=== PATIENT | male | born 1945 | race Caucasian/White ===

== ENCOUNTER 2016-11-17 18:39 | Emergency (ER) | payer OTHER ==
[2016-11-17] MEDS ORDERED: APAP/HYDROCODONE 325/5 TAB PO ONE (18:43)
[2016-11-17] MEDS ORDERED: KETOROLAC TROMETHAMINE 30 MG/ML SOL IM ONE (18:43)
[2016-11-17 18:46] VITALS: PULSE 76; RESP 20; TEMP 97.5
[2016-11-17] MEDS ORDERED: KETOROLAC TROMETHAMINE 30 MG/ML SOL ONE (18:47)
[2016-11-17] MEDS ORDERED: APAP/HYDROCODONE 325/5 TAB ONE (18:47)
[2016-11-17 19:23] VITALS: BP 142/92; O2SAT 97
[2016-11-17] MEDS ORDERED: CYCLOBENZAPRINE 10 MG TAB PO ONE (19:39)
[2016-11-17] MEDS ORDERED: CYCLOBENZAPRINE 10 MG TAB ONE (19:43)
== END 2016-11-17 20:13 | disposition home or self-care (01) | DRG 563 ==
LOC: ED 18:39
DX: S39.012A Strain of muscle, fascia and tendon of lower back, initial encounter (principal); W19.XXXA Unspecified fall, initial encounter
CPT/HCPCS: 72120; 72170; 96372; 99283; J1885

== ENCOUNTER 2017-02-11 20:59 | Emergency (ER) | payer OTHER ==
[2017-02-11 21:03] VITALS: PULSE 90; RESP 20; TEMP 98; O2SAT 96
[2017-02-11] MEDS ORDERED: KETOROLAC TROMETHAMINE 30 MG/ML SOL IM ONE (22:17)
[2017-02-11] MEDS ORDERED: KETOROLAC TROMETHAMINE 30 MG/ML SOL ONE (22:20)
[2017-02-11 23:03] VITALS: BP 178/78
== END 2017-02-11 23:22 | disposition home or self-care (01) | DRG 552 ==
LOC: ED 20:59
DX: M54.5 Low back pain (principal); K59.00 Constipation, unspecified; S30.0XXA Contusion of lower back and pelvis, initial encounter; W07.XXXA Fall from chair, initial encounter
CPT/HCPCS: 72120; 96372; 99283; J1885

== ENCOUNTER 2017-04-06 00:48 | Emergency (ER) | payer OTHER ==
[2017-04-06 01:03] VITALS: TEMP 99
[2017-04-06 01:43] LABS: BASOPHILS % (AUTO) 0 % (0-3); EOSINOPHILS % (AUTO) 2 % (0-9); HEMATOCRIT 41 % (39-53); MEAN CORPUSCULAR VOLUME 86 fL (80-100); MONOCYTES % (AUTO) 8.5 % (0-12); NEUTROPHILS % (AUTO) 67.7 % (37-80)
[2017-04-06 02:08] LABS: CALCIUM 7.7 mg/dl (8.5-10.1); GLOM FILT RATE 98 mL/min (>60); SODIUM 138 mMol/L (136-145)
[2017-04-06 02:46] VITALS: BP 147/74; PULSE 64; RESP 18; O2SAT 98
[2017-04-06 11:31] LABS: BASOPHILS % (AUTO) 1 % (0-3); EOSINOPHILS % (AUTO) 0 % (0-9); HEMATOCRIT 44 % (39-53); MEAN CORPUSCULAR HGB CONC 33.2 gm/dl (32.0-36.0); MEAN CORPUSCULAR VOLUME 87 fL (80-100); MONOCYTES % (AUTO) 5.7 % (0-12); NEUTROPHILS % (AUTO) 82.9 % (37-80)
[2017-04-06 11:44] LABS: CALCIUM 8.1 mg/dl (8.5-10.1); POTASSIUM 3.8 mMol/L (3.5-5.1)
== END 2017-04-06 02:40 | disposition home or self-care (01) | DRG 192 ==
LOC: ED 00:48
DX: J44.9 Chronic obstructive pulmonary disease, unspecified (principal); E10.649 Type 1 diabetes mellitus with hypoglycemia without coma; Z79.84 Long term (current) use of oral hypoglycemic drugs; V49.9XXA Car occupant (driver) (passenger) injured in unspecified traffic accident, initial encounter
CPT/HCPCS: 36415; 80048; 82962; 84484; 85025; 93005; 99283; 99284

== ENCOUNTER 2017-04-07 10:58 | Emergency (ER) | payer OTHER ==
[2017-04-07] MEDS ORDERED: HALOPERIDOL LACTATE 5 MG/ML SOL IV ONE (11:05)
[2017-04-07] MEDS ORDERED: DEXTROSE 50% 1 VIAL SOL IV ONE ×4 (11:12→17:23)
[2017-04-07 11:18] LABS: APPEARANCE,URINE Clear; BILIRUBIN,URINE NEGATIVE (NEGATIVE); COLOR,URINE Yellow; GLUCOSE, URINE (UA) NEGATIVE (NEGATIVE); KETONES,URINE 1+ (NEGATIVE); LEUKOCYTE ESTERASE ,URINE NEGATIVE (NEGATIVE); NITRATE,URINE NEGATIVE (NEGATIVE); OCCULT BLOOD,URINE 1+ (NEG-TRACE)
[2017-04-07 11:21] LABS: AMPHETAMINES NEGATIVE (NEGATIVE); METHADONE NEGATIVE (NEGATIVE); OPIATES(OP13) NEGATIVE (NEGATIVE); OXYCODONE(OXY) NEGATIVE (NEGATIVE); PROPOXYPHENE(PPX) NEGATIVE (NEGATIVE); TRICYCLIC ANTIDEPRESSANTS NEGATIVE (NEGATIVE)
[2017-04-07] MEDS ORDERED: LORAZEPAM 2 MG/ML SOL IV ONE ×2 (11:30→11:47)
[2017-04-07] MEDS ORDERED: SODIUM CHLORIDE 0.9% 1000ML 1,000 ML IV SCH (11:30)
[2017-04-07] MEDS ORDERED: LORAZEPAM 2 MG/ML SOL ONE ×2 (11:32→11:42)
[2017-04-07 11:35] LABS: BASOPHILS % (AUTO) 0 % (0-3); EOSINOPHILS % (AUTO) 0 % (0-9); HEMATOCRIT 46 % (39-53); MEAN CORPUSCULAR HGB CONC 34.3 gm/dl (32.0-36.0); MEAN CORPUSCULAR VOLUME 87 fL (80-100); MONOCYTES % (AUTO) 5.2 % (0-12); NEUTROPHILS % (AUTO) 90.5 % (37-80)
[2017-04-07 11:48] LABS: RBC,URINE 0-3 (0-3AV/HPF); WBC,URINE 0-3 (0-5AV/HPF)
[2017-04-07 12:02] LABS: ALBUMIN 3.6 gm/dl (3.4-5.0); ALT 22 IU/L (14-63); CALCIUM 8.1 mg/dl (8.5-10.1); GLOM FILT RATE 89 mL/min (>60); POTASSIUM 3.3 mMol/L (3.5-5.1)
[2017-04-07 12:04] LABS: SODIUM 136 mMol/L (136-145)
[2017-04-07] MEDS ORDERED: SODIUM CHLORIDE 0.9% FLUSH 10 ML SOL IV PRN (12:48)
[2017-04-07 15:04] VITALS: RESP 20
[2017-04-07 15:54] VITALS: TEMP 99.5
[2017-04-07] MEDS ORDERED: SODIUM CHLORIDE 0.9% 1000ML 1,000 ML IV ONE (17:24)
[2017-04-07 19:35] VITALS: BP 116/56; PULSE 81; O2SAT 94
[2017-04-07] MEDS ORDERED: HALOPERIDOL LACTATE 5 MG/ML SOL ONE (20:32)
== END 2017-04-07 18:18 | disposition short-term general hospital (02) | DRG 948 ==
LOC: ED 10:58
DX: R41.82 Altered mental status, unspecified (principal); E11.9 Type 2 diabetes mellitus without complications; R45.1 Restlessness and agitation; Z79.84 Long term (current) use of oral hypoglycemic drugs
CPT/HCPCS: 36415; 70450; 71010; 80053; 80305; 80307; 81001; 82962; 84484; 85025; 93005; 99285; J1630; J2060

== ENCOUNTER 2018-01-24 18:30 | Emergency (ER) | payer OTHER ==
[2018-01-24 18:31] VITALS: O2SAT 94
[2018-01-24] MEDS ORDERED: TDAP VACCINE 0.5 ML SUS IM ONE ×2 (18:36→18:46)
[2018-01-24 18:42] VITALS: BP 150/92; PULSE 74; RESP 18; TEMP 97.6
[2018-01-24] MEDS ORDERED: CEFTRIAXONE 1 GM PDS IM ONE (18:49)
[2018-01-24] MEDS ORDERED: LIDOCAINE HCL 1% MPF 30 SOL ONE (18:50)
[2018-01-24] MEDS ORDERED: CEFTRIAXONE 1 GM PDS ONE (19:22)
== END 2018-01-24 19:35 | disposition home or self-care (01) | DRG 605 ==
LOC: ED 18:30
DX: S81.812A Laceration without foreign body, left lower leg, initial encounter (principal)
CPT/HCPCS: 12002; 90471; 90715; 96372; 99284; J0696; J2001

== ENCOUNTER 2018-02-13 18:05 | Emergency (ER) | payer OTHER ==
[2018-02-13 18:21] VITALS: BP 155/78; PULSE 82; RESP 16; TEMP 97.1; O2SAT 95
== END 2018-02-13 18:45 | disposition home or self-care (01) | DRG 153 ==
LOC: ED 18:05
DX: H66.91 Otitis media, unspecified, right ear (principal)
CPT/HCPCS: 99282; 99283

== ENCOUNTER 2018-04-25 20:56 | Emergency (ER) | payer OTHER ==
[2018-04-25] MEDS ORDERED: SOLUMEDROL 125 MG/2 ML 125 MG/2 ML PDS IV ONE (22:18)
[2018-04-25] MEDS ORDERED: ALBUTEROL/IPRATROPIUM 1 VIAL SOL INH ONE (22:18)
[2018-04-25] MEDS ORDERED: ALBUTEROL/IPRATROPIUM 1 VIAL SOL ONE (22:23)
[2018-04-25 22:27] LABS: BASOPHILS % (AUTO) 1 % (0-3); EOSINOPHILS % (AUTO) 2 % (0-9); HEMATOCRIT 53 % (39-53); HEMOGLOBIN 16.9 gm/dl (13.5-17.7); LYMPHOCYTES % (AUTO) 20.8 % (10-50); MEAN CORPUSCULAR HEMOGLOBIN 28.2 pg (27.0-32.0); MEAN CORPUSCULAR HGB CONC 32.2 gm/dl (32.0-36.0); MEAN CORPUSCULAR VOLUME 88 fL (80-100); MONOCYTES % (AUTO) 8.9 % (0-12); NEUTROPHILS % (AUTO) 67.6 % (37-80)
[2018-04-25 22:29] VITALS: O2SAT 98
[2018-04-25 22:31] VITALS: BP 198/94; TEMP 97.7
[2018-04-25 22:33] VITALS: PULSE 70; RESP 18
[2018-04-25 22:43] LABS: ALBUMIN 3.1 gm/dl (3.4-5.0); BILIRUBIN,TOTAL 0.5 mg/dl (0.2-1.0); CALCIUM 8.3 mg/dl (8.5-10.1); CARBON DIOXIDE 30.8 mEq/L (21-32); CREATININE 1.03 mg/dl (0.80-1.30); TOTAL PROTEIN 6.9 gm/dl (6.4-8.2)
[2018-04-25] MEDS ORDERED: INSULIN HUMAN REGULAR 100 U/ML SOL SC ONE (23:09)
[2018-04-25] MEDS ORDERED: INSULIN GLARGINE, RECOMBINAN 100 U/ML SOL SC ONE ×2 (23:09→23:13)
[2018-04-25] MEDS ORDERED: INSULIN HUMAN REGULAR 100 U/ML SOL ONE ×2 (23:11→23:12)
[2018-04-25 23:16] LABS: HEMOGLOBIN A1C 13.6 % (4.8-6.0)
== END 2018-04-25 23:39 | disposition home or self-care (01) | DRG 204 ==
LOC: ED 20:56
DX: R06.02 Shortness of breath (principal); E11.65 Type 2 diabetes mellitus with hyperglycemia; Z79.4 Long term (current) use of insulin
CPT/HCPCS: 71046; 80053; 83036; 83880; 85025; 96372; 99284; J1815; J1817

== ENCOUNTER 2018-11-27 17:39 | Emergency (ER) | payer OTHER ==
[2018-11-27 19:52] VITALS: RESP 20; TEMP 97.2
[2018-11-27 19:54] VITALS: BP 170/107; PULSE 78; O2SAT 95
== END 2018-11-27 18:32 | disposition home or self-care (01) | DRG 159 ==
LOC: SUPCPDRO 17:39 → ED 17:39
DX: K02.9 Dental caries, unspecified (principal)
CPT/HCPCS: 99282